=== PATIENT | male | born 1995 | race Caucasian/White ===

== ENCOUNTER 2023-12-04 17:41 | Inpatient (IN) | payer SELFPAY, BC ==
[~2023-12-04 17:41] MED LIST: Iopamidol-370 76% 500 ML MDV (1 ML CHARGE) ONE
[2023-12-04] MEDS ORDERED: Fentanyl BOLUS 250 ML IVPB PRN ×2 (18:00→22:15)
[2023-12-04] MEDS ORDERED: Fentanyl CADD 100 ML IV SCH (18:00)
[2023-12-04 18:11] LABS: #Basophils 0.09 10x3/uL (0.0-0.2); #Eosinphils Less than 0.03 10x3/uL (0.0-0.7); %Basophils 0.4 % (0.0-1.0); %Eosinophils 0.1 % (0.0-10.0); %Lymphocytes 15.1 % (21.0-51.0); %Monocytes 4.4 % (0.0-10.0); %Neutrophils 76.7 % (42.0-75.0); Hematocrit 42.8 % (42.0-52.0); Hemoglobin 14.4 g/dL (14.0-18.0); Mean Corpuscular HGB CONC 33.6 g/dL (32.0-36.0); Mean Corpuscular Hemoglobin 32.1 pg (27.0-31.0); Mean Corpuscular Volume 95.5 fL (78.0-98.0); Platelet Count 454 10x3/uL (130-400); RBC Distribution Width 11.8 % (11.5-14.5); Red Blood Cell (RBC) Count 4.48 mill/uL (4.70-6.10)
[2023-12-04 18:25] LABS: INR-International Normal Ratio 1.4; PTT 32.4 sec (22.9-36.1); Prothrombin Time 17.1 sec (12.0-14.7)
[2023-12-04 18:28] LABS: Globulin 1.7 g/dL (2.4-3.5)
[2023-12-04 18:30] LABS: Anion Gap 21 mmol/L (10-20)
[2023-12-04] MEDS ORDERED: Lidocaine 1% w/Epinephrine 1:100K 20 ML VIAL ONE (18:31)
[2023-12-04 18:32] LABS: ALT (SGPT) 222 U/L (8-55); AST (SGOT) 292 U/L (5-34); Albumin 2.9 g/dL (3.5-5.0); Alkaline Phosphatase 49 U/L (40-110); BUN (Urea Nitrogen) 12 mg/dL (8.9-20.6); Bilirubin, Total 0.7 mg/dL (0.2-1.2); Calc. Creatinine Clearance 0 mL/min (70-130); Calcium 7.8 mg/dL (7.8-10.44); Carbon Dioxide 13 mmol/L (22-29); Chloride 106 mmol/L (98-107); Estimated GFR 58; Glucose 145 mg/dL (70-105); Potassium 3.4 mmol/L (3.5-5.1); Protein, Total 4.6 g/dL (6.0-8.3); Sodium 137 mmol/L (136-145)
[2023-12-04 18:49] LABS: Actual Bicarbonate (HCO3a) 18.6 mEq/L (22-28); CO2 Tension 37.6 mmHg (35.0-45.0); Calcium, Ionized (arterial) 1.05 mmol/L (1.12-1.30); Carboxyhemoglobin (COHb) 0.6 gm% (0.0-3.0); Hematocrit-ABG 37 % (42.0-52.0); Hemoglobin (Hb) 12.6 g/dL (14.0-18.0); O2 Tension (PaO2), arterial 113.6 mmHg (80.0-100.0); pH, Arterial 7.312 (7.35-7.45)
[2023-12-04] MEDS ORDERED: Calcium Chloride 1 GM/10 ML Abboject SYRINGE ONE (18:58)
[2023-12-04] MEDS ORDERED: Dextrose 50% Abboject 50 ML SYRINGE SLOW IVP PRN (19:23)
[2023-12-04] MEDS ORDERED: Ipratropium/Albuterol 3 ML NEB NEB PRN (19:23)
[2023-12-04] MEDS ORDERED: Glucagon 1 MG/ML KIT IM PRN (19:23)
[2023-12-04] MEDS ORDERED: Ondansetron ODT 4 MG TAB PO PRN (19:23)
[2023-12-04] MEDS ORDERED: Ondansetron PF 4 MG/2 ML Vial IVP PRN (19:23)
[2023-12-04] MEDS ORDERED: Dextrose 5% in Water 1,000 ML IV PRN (19:23)
[2023-12-04] MEDS ORDERED: hydrALAZINE 20 MG/ML VIAL SLOW IVP PRN (19:23)
[2023-12-04] MEDS ORDERED: Electrolyte Replacement Protocol 1 EACH FS SCH (19:30)
[2023-12-04] MEDS ORDERED: Rib Fracture Protocol IV SCH (19:30)
[2023-12-04 19:37] LABS: Acetaminophen Less than 10 mcg/mL (10.0-30.0); Alcohol Less than 10.0 mg/dL (Less than 10); Salicylate Less than 8.0 mg/dL (15.0-30.0)
[2023-12-04 21:08] LABS: Lactic Acid 2.1 mmol/L (0.5-2.2)
[2023-12-04] MEDS ORDERED: LORazepam 2 MG/ML SYR.(CARPUJECT) ONE (21:20)
[2023-12-04 21:23] LABS: Amphetamine Not Detected (NotDetected); Barbiturates Screen Not Detected (NotDetected); Benzodiazepine Screen Not Detected (NotDetected); Cocaine Metabolite Screen Not Detected (NotDetected); Methadone Not Detected (NotDetected); Methamphetamine Not Detected (NotDetected); Opiate Screen Not Detected (NotDetected); Oxycodone Screen Not Detected (NotDetected); Phencyclidine (PCP) Not Detected (NotDetected); THC/Cannabinoid Screen Detected (NotDetected); Tricyclic Screen Not Detected (NotDetected)
[2023-12-04 21:24] LABS: Bacteria/HPF None Seen HPF (None Seen); Bilirubin Negative (Negative); Blood, Urine 3+ (Negative); Clarity Clear (Clear); Glucose, Urine (Dipstick) Normal (Negative); Ketone, Urine Negative (Negative); Leukocyte 25 Leu/uL (Negative); Nitrite Negative (Negative); Protein, Urine (Dipstick) 50 mg/dL (Neg-Trace); RBC/HPF Greater than 50 HPF (0-3); Squamous Epithelial None Seen HPF (0-3); Urobilinogen Normal mg/dL (Less than 2)
[2023-12-04] MEDS ORDERED: Propofol BOLUS 1,000 MG/100 ML VIAL IV PRN (22:15)
[2023-12-04] MEDS ORDERED: DISCONTINUE PREVIOUS NARCOTIC PAIN MEDICATIONS AND BENZODIAZEPINES FS SCH (22:15)
[2023-12-04] MEDS: Propofol 1,000 MG/100 ML VIAL IV PRN (22:32)
[2023-12-04] MEDS: Sodium Chloride 0.9% 1,000 ML IV SCH (22:32)
[2023-12-04 23:40] LABS: Globulin 1.3 g/dL (2.4-3.5)
[2023-12-04 23:43] LABS: #Basophils 0.04 10x3/uL (0.0-0.2); #Eosinphils Less than 0.03 10x3/uL (0.0-0.7); %Basophils 0.1 % (0.0-1.0); %Lymphocytes 4.7 % (21.0-51.0); %Monocytes 7.1 % (0.0-10.0); %Neutrophils 86.7 % (42.0-75.0); Hematocrit 29.6 % (42.0-52.0); Hemoglobin 10.4 g/dL (14.0-18.0); Mean Corpuscular HGB CONC 35.1 g/dL (32.0-36.0); Mean Corpuscular Hemoglobin 32.5 pg (27.0-31.0); Mean Corpuscular Volume 92.5 fL (78.0-98.0); Mean Platelet Volume 9.9 fL (7.4-10.4); Platelet Count 202 10x3/uL (130-400)
[2023-12-05 00:04] LABS: ALT (SGPT) 128 U/L (8-55); AST (SGOT) 200 U/L (5-34); Albumin 2.4 g/dL (3.5-5.0); Alkaline Phosphatase 37 U/L (40-110); Anion Gap 10 mmol/L (10-20); BUN (Urea Nitrogen) 15 mg/dL (8.9-20.6); Bilirubin, Total 1.5 mg/dL (0.2-1.2); Calc. Creatinine Clearance 0 mL/min (70-130); Calcium 7.7 mg/dL (7.8-10.44); Carbon Dioxide 22 mmol/L (22-29); Chloride 107 mmol/L (98-107); Estimated GFR 76; Glucose 121 mg/dL (70-105); Potassium 3.7 mmol/L (3.5-5.1); Protein, Total 3.7 g/dL (6.0-8.3); Sodium 135 mmol/L (136-145)
[2023-12-05] MEDS: Ipratropium/Albuterol 3 ML NEB NEB SCH (00:09)
[2023-12-05] MEDS: Potassium Chloride 20 MEQ in Premix 1 BAG IVPB SCH (00:13)
[2023-12-05] MEDS: Acetaminophen 650 MG Suppository PR SCH (00:14)
[2023-12-05] MEDS: Ketorolac Tromethamine 30 MG (1 mL) VIAL IVP SCH (00:14)
[2023-12-05] MEDS: Albumin 25% 25 GM (100 mL) BOT IVPB SCH (01:14)
[2023-12-05] MEDS: Calcium Chloride 13.6 MEQ in Sodium Chloride 0.9% 100 ML IVPB SCH (01:14)
[2023-12-05] MEDS: Lorazepam 2 MG/ML VIAL SLOW IVP PRN (02:25)
[2023-12-05] MEDS: NOREPINEPHRINE 8 MG/250 ML-D5W 250 ML IVPB SCH (02:30)
[2023-12-05 02:34] LABS: Base Excess (BEa) -9.5 mEq/L (-2.0 to +3.0); CO2 Tension 46.4 mmHg (35.0-45.0); Calcium, Ionized (arterial) 1.33 mmol/L (1.12-1.30); Carboxyhemoglobin (COHb) 0.6 gm% (0.0-3.0); Hematocrit-ABG 31 % (42.0-52.0); Hemoglobin (Hb) 10.4 g/dL (14.0-18.0); Potassium - ABG Lab 4.25 mmol/L (3.70-5.30)
[2023-12-05 02:43] LABS: pH, Arterial 7.207 (7.35-7.45)
[2023-12-05 02:44] LABS: O2 Tension (PaO2), arterial 56.1 mmHg (80.0-100.0); Puncture Site LBA
[2023-12-05] MEDS: Sodium Bicarb 50 mEq/50 ML VIAL ONE (02:51)
[2023-12-05] MEDS: Sodium Chloride 0.9% 500 ML IV SCH ×2 (02:57→23:22)
[2023-12-05] MEDS: Vecuronium 10 MG VIAL IVP PRN (03:03)
[2023-12-05] MEDS: Fentanyl CADD 100 ML IV SCH (03:54)
[2023-12-05] MEDS: Vecuronium 10 MG VIAL ONE (03:56)
[2023-12-05 04:32] LABS: #Basophils 0.03 10x3/uL (0.0-0.2); #Eosinphils Less than 0.03 10x3/uL (0.0-0.7); %Basophils 0.2 % (0.0-1.0); %Eosinophils 0.1 % (0.0-10.0); %Lymphocytes 10.5 % (21.0-51.0); %Monocytes 8.7 % (0.0-10.0); %Neutrophils 79.2 % (42.0-75.0); Hematocrit 23.5 % (42.0-52.0); Hemoglobin 8.6 g/dL (14.0-18.0); Mean Corpuscular HGB CONC 36.6 g/dL (32.0-36.0); Mean Corpuscular Hemoglobin 32.1 pg (27.0-31.0); Mean Corpuscular Volume 87.7 fL (78.0-98.0); Mean Platelet Volume 10.3 fL (7.4-10.4); Platelet Count 158 10x3/uL (130-400); RBC Distribution Width 13.4 % (11.5-14.5); Red Blood Cell (RBC) Count 2.68 mill/uL (4.70-6.10)
[2023-12-05 04:51] LABS: Phosphorus 4.9 mg/dL (2.3-4.7)
[2023-12-05 04:58] LABS: ALT (SGPT) 92 U/L (8-55); AST (SGOT) 142 U/L (5-34); Albumin 2.5 g/dL (3.5-5.0); Alkaline Phosphatase 29 U/L (40-110); Anion Gap 12 mmol/L (10-20); BUN (Urea Nitrogen) 18 mg/dL (8.9-20.6); Bilirubin, Total 1.2 mg/dL (0.2-1.2); Calc. Creatinine Clearance 96 mL/min (70-130); Carbon Dioxide 23 mmol/L (22-29); Chloride 108 mmol/L (98-107); Estimated GFR 79; Glucose 122 mg/dL (70-105); Magnesium 1.5 mg/dL (1.6-2.6); Potassium 4.1 mmol/L (3.5-5.1); Protein, Total 3.5 g/dL (6.0-8.3); Sodium 139 mmol/L (136-145)
[2023-12-05 05:25] LABS: INR-International Normal Ratio 1.7; PTT 37.3 sec (22.9-36.1); Prothrombin Time 19.5 sec (12.0-14.7)
[2023-12-05] MEDS: Magnesium 2 GM/50 ML(in water) 2 GM in Premix 1 BAG IVPB SCH (05:26)
[2023-12-05] MEDS: TETANUS, DIPHTHERIA TOX,ADULT (TDVAX) 0.5 ML VIAL IM ONE (06:33)
[2023-12-05] MEDS: Famotidine/PF 20 mg/2ml Vial SLOW IVP SCH (06:35)
[2023-12-05] MEDS: Sodium Chloride 0.9% 1,000 ML IV SCH (06:44)
[2023-12-05 07:25] LABS: Actual Bicarbonate (HCO3a) 22.4 mEq/L (22-28); Base Excess (BEa) -1.3 mEq/L (-2.0 to +3.0); CO2 Tension 33.3 mmHg (35.0-45.0); Calcium, Ionized (arterial) 1.15 mmol/L (1.12-1.30); Carboxyhemoglobin (COHb) 0.7 gm% (0.0-3.0); Hematocrit-ABG 25 % (42.0-52.0); Hemoglobin (Hb) 8.5 g/dL (14.0-18.0); O2 Tension (PaO2), arterial 109.1 mmHg (80.0-100.0); Potassium - ABG Lab 3.87 mmol/L (3.70-5.30); pH, Arterial 7.446 (7.35-7.45)
[2023-12-05 07:30] LABS: ALV-art Gradient 241.425 mmHg (0-20); Puncture Site RRA
[2023-12-05] MEDS ORDERED: CEFAZOLIN 2 GM in Sodium Chloride 0.9% 100 ML IVPB SCH ×2 (07:30→22:00)
[2023-12-05] MEDS ORDERED: Dextrose 5% in Water 1,000 ML IV SCH (08:15)
[2023-12-05] MEDS: cefTRIAXone\\ROCEPHIN 2 GM in Sodium Chloride 0.9% 100 ML IVPB SCH (08:35)
[2023-12-05] MEDS ORDERED: Iopamidol-370 76% 500 ML MDV (1 ML CHARGE) ONE (10:04)
[2023-12-05 12:26] LABS: Hematocrit 27.5 % (42.0-52.0); Hemoglobin 9.8 g/dL (14.0-18.0); Platelet Count 150 10x3/uL (130-400)
[2023-12-05 12:46] LABS: INR-International Normal Ratio 1.4; PTT 36.6 sec (22.9-36.1); Prothrombin Time 17.6 sec (12.0-14.7)
[2023-12-05] MEDS ORDERED: fentaNYL PF 100 MCG/2 ML SYRINGE ONE (15:16)
[2023-12-05] MEDS ORDERED: Dexamethasone 20 MG/5 ML VIAL ONE (15:17)
[2023-12-05] MEDS ORDERED: Rocuronium Bromide 10 MG/ML (10ML VIAL) ONE (15:17)
[2023-12-05] MEDS ORDERED: Ondansetron PF 4 MG/2 ML Vial ONE (15:17)
[2023-12-05] MEDS ORDERED: Ketamine In 0.9 % NaCl 50 MG/5 ML SYRINGE ONE (15:43)
[2023-12-05] MEDS ORDERED: fentaNYL 50 mcg/mL 1 mL Vial ONE (16:10)
[2023-12-05 23:27] LABS: #Basophils Less than 0.03 10x3/uL (0.0-0.2); #Eosinphils Less than 0.03 10x3/uL (0.0-0.7); %Basophils 0.1 % (0.0-1.0); %Lymphocytes 6.7 % (21.0-51.0); %Monocytes 7.6 % (0.0-10.0); %Neutrophils 85.2 % (42.0-75.0); Hemoglobin 7.4 g/dL (14.0-18.0); Mean Corpuscular HGB CONC 35.2 g/dL (32.0-36.0); Mean Corpuscular Hemoglobin 31.4 pg (27.0-31.0); Platelet Count 132 10x3/uL (130-400); RBC Distribution Width 13.9 % (11.5-14.5); Red Blood Cell (RBC) Count 2.36 mill/uL (4.70-6.10)
[2023-12-06] MEDS: Acetaminophen 325 MG TAB PO SCH (00:56)
[2023-12-06 06:07] LABS: #Basophils Less than 0.03 10x3/uL (0.0-0.2); #Eosinphils Less than 0.03 10x3/uL (0.0-0.7); %Basophils 0.1 % (0.0-1.0); %Eosinophils 0.1 % (0.0-10.0); %Lymphocytes 7.1 % (21.0-51.0); %Monocytes 5.5 % (0.0-10.0); %Neutrophils 86.8 % (42.0-75.0); Hematocrit 26.3 % (42.0-52.0); Hemoglobin 9.4 g/dL (14.0-18.0); Mean Corpuscular HGB CONC 35.7 g/dL (32.0-36.0); Mean Corpuscular Hemoglobin 31.9 pg (27.0-31.0); Mean Corpuscular Volume 89.2 fL (78.0-98.0); Mean Platelet Volume 11.7 fL (7.4-10.4); Platelet Count 184 10x3/uL (130-400); RBC Distribution Width 14.1 % (11.5-14.5); Red Blood Cell (RBC) Count 2.95 mill/uL (4.70-6.10)
[2023-12-06 06:18] LABS: Globulin 2.3 g/dL (2.4-3.5)
[2023-12-06 06:30] LABS: ALT (SGPT) 82 U/L (8-55); AST (SGOT) 128 U/L (5-34); Albumin 2.2 g/dL (3.5-5.0); Alkaline Phosphatase 38 U/L (40-110); Anion Gap 11 mmol/L (10-20); BUN (Urea Nitrogen) 20 mg/dL (8.9-20.6); Bilirubin, Total 0.5 mg/dL (0.2-1.2); Calc. Creatinine Clearance 146 mL/min (70-130); Calcium 7.7 mg/dL (7.8-10.44); Carbon Dioxide 20 mmol/L (22-29); Chloride 113 mmol/L (98-107); Estimated GFR 122; Glucose 109 mg/dL (70-105); Potassium 5.3 mmol/L (3.5-5.1); Protein, Total 4.5 g/dL (6.0-8.3); Sodium 139 mmol/L (136-145)
[2023-12-06 07:28] LABS: Base Excess (BEa) -3.1 mEq/L (-2.0 to +3.0); CO2 Tension 39.7 mmHg (35.0-45.0); Calcium, Ionized (arterial) 1.15 mmol/L (1.12-1.30); Carboxyhemoglobin (COHb) 0.2 gm% (0.0-3.0); Hematocrit-ABG 29 % (42.0-52.0); Hemoglobin (Hb) 9.8 g/dL (14.0-18.0); Potassium - ABG Lab 4.14 mmol/L (3.70-5.30); pH, Arterial 7.362 (7.35-7.45)
[2023-12-06 07:33] LABS: O2 Tension (PaO2), arterial 57.8 mmHg (80.0-100.0)
[2023-12-06 07:34] LABS: ALV-art Gradient 462.975 mmHg (0-20); Puncture Site RRA
[2023-12-06] MEDS: Albumin 25% 25 GM (100 mL) BOT IVPB SCH ×2 (09:27→18:41)
[2023-12-06] MEDS: Sodium Chloride 0.45% 1,000 ML IV SCH ×2 (09:27→15:43)
[2023-12-06] MEDS: Lidocaine 1% w/Epinephrine 1:100K 20 ML VIAL FS SCH (09:47)
[2023-12-06] MEDS: Lidocaine 1% w/Epinephrine 1:100K 20 ML VIAL ONE (09:47)
[2023-12-07 03:55] LABS: #Basophils 0.08 10x3/uL (0.0-0.2); %Basophils 0.6 % (0.0-1.0); %Eosinophils 1.3 % (0.0-10.0); %Lymphocytes 16.6 % (21.0-51.0); %Monocytes 6.4 % (0.0-10.0); %Neutrophils 74.1 % (42.0-75.0); Hematocrit 22.9 % (42.0-52.0); Hemoglobin 7.4 g/dL (14.0-18.0); Mean Corpuscular HGB CONC 32.3 g/dL (32.0-36.0); Mean Corpuscular Hemoglobin 30.3 pg (27.0-31.0); Mean Corpuscular Volume 93.9 fL (78.0-98.0); Mean Platelet Volume 10.7 fL (7.4-10.4); Platelet Count 122 10x3/uL (130-400); RBC Distribution Width 14.1 % (11.5-14.5); Red Blood Cell (RBC) Count 2.44 mill/uL (4.70-6.10)
[2023-12-07 04:26] LABS: Globulin 1.9 g/dL (2.4-3.5)
[2023-12-07 04:31] LABS: ALT (SGPT) 66 U/L (8-55); AST (SGOT) 87 U/L (5-34); Albumin 2.5 g/dL (3.5-5.0); Alkaline Phosphatase 48 U/L (40-110); Anion Gap 14 mmol/L (10-20); BUN (Urea Nitrogen) 19 mg/dL (8.9-20.6); Bilirubin, Total 0.6 mg/dL (0.2-1.2); Calc. Creatinine Clearance 141 mL/min (70-130); Calcium 7.8 mg/dL (7.8-10.44); Carbon Dioxide 17 mmol/L (22-29); Chloride 109 mmol/L (98-107); Estimated GFR 121; Glucose 88 mg/dL (70-105); Protein, Total 4.4 g/dL (6.0-8.3); Sodium 136 mmol/L (136-145)
[2023-12-07 17:54] LABS: Hemoglobin 8.1 g/dL (14.0-18.0)
[2023-12-07] MEDS: Vecuronium Bromide 50 MG, Admixture Fee 1 EACH in Sodium Chloride 0.9% 250 ML 250 ML IV SCH (20:00)
[2023-12-07] MEDS: Sodium Bicarb 50 mEq/50 ML VIAL IVP SCH (21:27)
[2023-12-07] MEDS: Metoclopramide HCl 10 MG (2 mL) VIAL IVP SCH (23:54)
[2023-12-08 04:22] LABS: #Basophils 0.05 10x3/uL (0.0-0.2); %Basophils 0.3 % (0.0-1.0); %Lymphocytes 7.4 % (21.0-51.0); %Monocytes 6.8 % (0.0-10.0); %Neutrophils 82.3 % (42.0-75.0); Hemoglobin 7.5 g/dL (14.0-18.0); Mean Corpuscular HGB CONC 34.1 g/dL (32.0-36.0); Mean Corpuscular Hemoglobin 30.7 pg (27.0-31.0); Mean Corpuscular Volume 90.2 fL (78.0-98.0); Mean Platelet Volume 10.5 fL (7.4-10.4); Platelet Count 171 10x3/uL (130-400); RBC Distribution Width 13.8 % (11.5-14.5); Red Blood Cell (RBC) Count 2.44 mill/uL (4.70-6.10)
[2023-12-08 05:07] LABS: Globulin 2.4 g/dL (2.4-3.5)
[2023-12-08 05:11] LABS: ALT (SGPT) 66 U/L (8-55); AST (SGOT) 78 U/L (5-34); Albumin 2.1 g/dL (3.5-5.0); Alkaline Phosphatase 70 U/L (40-110); Anion Gap 12 mmol/L (10-20); BUN (Urea Nitrogen) 14 mg/dL (8.9-20.6); Bilirubin, Total 0.8 mg/dL (0.2-1.2); Calc. Creatinine Clearance 183 mL/min (70-130); Carbon Dioxide 19 mmol/L (22-29); Chloride 108 mmol/L (98-107); Estimated GFR 129; Glucose 93 mg/dL (70-105); Protein, Total 4.5 g/dL (6.0-8.3); Sodium 135 mmol/L (136-145)
[2023-12-08 11:39] LABS: Hematocrit 23.5 % (42.0-52.0); Hemoglobin 7.8 g/dL (14.0-18.0)
[2023-12-08 23:01] LABS: Anion Gap 14 mmol/L (10-20); BUN (Urea Nitrogen) 14 mg/dL (8.9-20.6); Calc. Creatinine Clearance 193 mL/min (70-130); Calcium 8.5 mg/dL (7.8-10.44); Carbon Dioxide 21 mmol/L (22-29); Chloride 106 mmol/L (98-107); Estimated GFR 129; Glucose 99 mg/dL (70-105); Potassium 3.9 mmol/L (3.5-5.1); Sodium 137 mmol/L (136-145)
[2023-12-09 04:56] LABS: #Basophils 0.06 10x3/uL (0.0-0.2); %Basophils 0.4 % (0.0-1.0); %Eosinophils 1.9 % (0.0-10.0); %Lymphocytes 5.4 % (21.0-51.0); %Monocytes 8.2 % (0.0-10.0); %Neutrophils 79.5 % (42.0-75.0); Hematocrit 21.1 % (42.0-52.0); Mean Corpuscular HGB CONC 33.2 g/dL (32.0-36.0); Mean Corpuscular Hemoglobin 30.8 pg (27.0-31.0); Mean Platelet Volume 9.7 fL (7.4-10.4); Platelet Count 228 10x3/uL (130-400); RBC Distribution Width 13.6 % (11.5-14.5); Red Blood Cell (RBC) Count 2.27 mill/uL (4.70-6.10)
[2023-12-09 05:15] LABS: Globulin 2.6 g/dL (2.4-3.5)
[2023-12-09 05:19] LABS: ALT (SGPT) 66 U/L (8-55); AST (SGOT) 75 U/L (5-34); Albumin 1.9 g/dL (3.5-5.0); Alkaline Phosphatase 94 U/L (40-110); Anion Gap 12 mmol/L (10-20); BUN (Urea Nitrogen) 15 mg/dL (8.9-20.6); Calc. Creatinine Clearance 218 mL/min (70-130); Carbon Dioxide 22 mmol/L (22-29); Chloride 107 mmol/L (98-107); Estimated GFR 134; Glucose 94 mg/dL (70-105); Potassium 3.8 mmol/L (3.5-5.1); Protein, Total 4.5 g/dL (6.0-8.3); Sodium 137 mmol/L (136-145)
[2023-12-09] MEDS: Sodium Chloride 0.45% 1,000 ML IV SCH (10:49)
[2023-12-09 11:53] LABS: Hematocrit 23.2 % (42.0-52.0); Hemoglobin 7.8 g/dL (14.0-18.0)
[2023-12-09] MEDS: Dexmedetomidine 1,000 MCG in NS 250 mL IVPB SCH (13:31)
[2023-12-09] MEDS: hydrOXYzine Pamoate 25 mg Capsule PO SCH (20:55)
[2023-12-09] MEDS: QUEtiapine 100 MG TAB PO SCH (20:55)
[2023-12-10] MEDS: Vecuronium 10 MG VIAL IVP SCH (03:22)
[2023-12-10] MEDS: Vecuronium 10 MG VIAL ONE (03:25)
[2023-12-10] MEDS: Sterile Water 10 ML ONE (03:25)
[2023-12-10 05:10] LABS: Globulin 2.9 g/dL (2.4-3.5); Hematocrit 23.6 % (42.0-52.0); Hemoglobin 7.9 g/dL (14.0-18.0); Mean Corpuscular HGB CONC 33.5 g/dL (32.0-36.0); Mean Corpuscular Hemoglobin 29.8 pg (27.0-31.0); Mean Corpuscular Volume 89.1 fL (78.0-98.0); Mean Platelet Volume 9.9 fL (7.4-10.4); Platelet Count 303 10x3/uL (130-400); RBC Distribution Width 14.2 % (11.5-14.5); Red Blood Cell (RBC) Count 2.65 mill/uL (4.70-6.10)
[2023-12-10 05:14] LABS: ALT (SGPT) 57 U/L (8-55); AST (SGOT) 49 U/L (5-34); Albumin 1.9 g/dL (3.5-5.0); Alkaline Phosphatase 90 U/L (40-110); Anion Gap 13 mmol/L (10-20); BUN (Urea Nitrogen) 16 mg/dL (8.9-20.6); Bilirubin, Total 0.8 mg/dL (0.2-1.2); Calc. Creatinine Clearance 192 mL/min (70-130); Calcium 8.3 mg/dL (7.8-10.44); Carbon Dioxide 23 mmol/L (22-29); Chloride 107 mmol/L (98-107); Estimated GFR 128; Glucose 95 mg/dL (70-105); Potassium 3.7 mmol/L (3.5-5.1); Protein, Total 4.8 g/dL (6.0-8.3); Sodium 139 mmol/L (136-145)
[2023-12-10 06:40] LABS: Band 1 % (5-11); Eosinophils 4 % (0-10); Large Platelets 4.3 % (0-5); Lymphocytes 2 % (21-51); Monocytes 7 % (0-10); Myelocyte 4 % (0-0); Neutrophil 83 % (42-75); Platelet Adequacy Comment Platelets Normal; RBC Morphology Within Normal Limits
[2023-12-10 07:50] LABS: Actual Bicarbonate (HCO3a) 25.1 mEq/L (22-28); Base Excess (BEa) 1.2 mEq/L (-2.0 to +3.0); Calcium, Ionized (arterial) 1.16 mmol/L (1.12-1.30); Hematocrit-ABG 26 % (42.0-52.0); Hemoglobin (Hb) 8.9 g/dL (14.0-18.0); O2 Tension (PaO2), arterial 67.7 mmHg (80.0-100.0); Potassium - ABG Lab 3.66 mmol/L (3.70-5.30)
[2023-12-10 07:52] LABS: Puncture Site RBA
[2023-12-10] MEDS: Vecuronium 10 MG VIAL IV PRN (11:15)
[2023-12-11] MEDS: Sterile Water 10 ML VIAL FS PRN (00:21)
[2023-12-11 07:48] LABS: Actual Bicarbonate (HCO3a) 27.7 mEq/L (22-28); Base Excess (BEa) 2.6 mEq/L (-2.0 to +3.0); CO2 Tension 45.8 mmHg (35.0-45.0); Calcium, Ionized (arterial) 1.16 mmol/L (1.12-1.30); Carboxyhemoglobin (COHb) 0.8 gm% (0.0-3.0); Hematocrit-ABG 27 % (42.0-52.0); Hemoglobin (Hb) 9.2 g/dL (14.0-18.0); O2 Tension (PaO2), arterial 111.7 mmHg (80.0-100.0); Potassium - ABG Lab 3.82 mmol/L (3.70-5.30)
[2023-12-11 07:49] LABS: Puncture Site RRA
[2023-12-11 08:45] LABS: ALT (SGPT) 50 U/L (8-55); AST (SGOT) 47 U/L (5-34); Albumin 1.8 g/dL (3.5-5.0); Alkaline Phosphatase 91 U/L (40-110); Anion Gap 13 mmol/L (10-20); BUN (Urea Nitrogen) 14 mg/dL (8.9-20.6); Bilirubin, Total 0.8 mg/dL (0.2-1.2); Calc. Creatinine Clearance 212 mL/min (70-130); Calcium 8.3 mg/dL (7.8-10.44); Carbon Dioxide 25 mmol/L (22-29); Chloride 106 mmol/L (98-107); Estimated GFR 133; Glucose 91 mg/dL (70-105); Potassium 3.9 mmol/L (3.5-5.1); Protein, Total 4.8 g/dL (6.0-8.3); Sodium 140 mmol/L (136-145)
[2023-12-11 09:40] LABS: Hematocrit 25.4 % (42.0-52.0); Hemoglobin 8.2 g/dL (14.0-18.0); Mean Corpuscular HGB CONC 32.3 g/dL (32.0-36.0); Mean Corpuscular Hemoglobin 30.7 pg (27.0-31.0); Mean Corpuscular Volume 95.1 fL (78.0-98.0); Mean Platelet Volume 10.9 fL (7.4-10.4); Platelet Count 322 10x3/uL (130-400); RBC Distribution Width 13.9 % (11.5-14.5); Red Blood Cell (RBC) Count 2.67 mill/uL (4.70-6.10)
[2023-12-11 10:10] LABS: Band 2 % (5-11); Large Platelets 2.9 % (0-5); Lymphocytes 9 % (21-51); Monocytes 8 % (0-10); Neutrophil 81 % (42-75); Platelet Adequacy Comment Platelets Normal; RBC Morphology Within Normal Limits
[2023-12-11] MEDS ORDERED: Lorazepam 20 MG/10ML 100 MG in Sodium Chloride 0.9% 50 ML IVPB SCH (11:30)
[2023-12-11] MEDS: Sodium Chloride 0.45% 1,000 ML IV SCH (12:07)
[2023-12-11] MEDS ORDERED: Midazolam In 0.9 % NaCl/PF 100 ML IVPB SCH (12:30)
[2023-12-11] MEDS: Famotidine 20 MG TAB PER TUBE SCH (21:15)
[2023-12-12 04:58] LABS: Hematocrit 25.7 % (42.0-52.0); Hemoglobin 8.4 g/dL (14.0-18.0); Mean Corpuscular HGB CONC 32.7 g/dL (32.0-36.0); Mean Corpuscular Hemoglobin 30.5 pg (27.0-31.0); Mean Corpuscular Volume 93.5 fL (78.0-98.0); Mean Platelet Volume 11.3 fL (7.4-10.4); Platelet Count 346 10x3/uL (130-400); RBC Distribution Width 13.9 % (11.5-14.5); Red Blood Cell (RBC) Count 2.75 mill/uL (4.70-6.10)
[2023-12-12 06:00] LABS: Band 3 % (5-11); Eosinophils 4 % (0-10); Lymphocytes 4 % (21-51); Metamyelocyte 2 % (0-0); Monocytes 6 % (0-10); Myelocyte 4 % (0-0); Neutrophil 77 % (42-75); Platelet Adequacy Comment Platelets Normal; Polychromasia SLIGHT = 2-3 cells HPF (0-2); RBC Morphology Within Normal Limits; Smudge Cells 13.9 %
[2023-12-12] MEDS ORDERED: Lorazepam 20 MG/10ML 100 MG in Sodium Chloride 0.9% 50 ML IVPB SCH (06:00)
[2023-12-12 07:47] LABS: Calcium, Ionized (arterial) 1.15 mmol/L (1.12-1.30); Carboxyhemoglobin (COHb) 1.6 gm% (0.0-3.0); Hematocrit-ABG 38 % (42.0-52.0); Hemoglobin (Hb) 12.8 g/dL (14.0-18.0); O2 Tension (PaO2), arterial 86.3 mmHg (80.0-100.0)
[2023-12-12 07:48] LABS: Puncture Site RRA
[2023-12-12] MEDS: Morphine 2 MG/ML VIAL SLOW IVP PRN (14:21)
[2023-12-12] MEDS ORDERED: Morphine 4 MG/ML VIAL SLOW IVP SCH (15:45)
[2023-12-12] MEDS: Morphine 4 MG/ML VIAL SLOW IVP SCH (15:50)
[2023-12-13 05:05] LABS: Hematocrit 27.6 % (42.0-52.0); Hemoglobin 8.8 g/dL (14.0-18.0); Mean Corpuscular HGB CONC 31.9 g/dL (32.0-36.0); Mean Corpuscular Hemoglobin 29.7 pg (27.0-31.0); Mean Corpuscular Volume 93.2 fL (78.0-98.0); Mean Platelet Volume 12.3 fL (7.4-10.4); Platelet Count 261 10x3/uL (130-400); RBC Distribution Width 13.8 % (11.5-14.5); Red Blood Cell (RBC) Count 2.96 mill/uL (4.70-6.10)
[2023-12-13 06:11] LABS: Band 5 % (5-11); Eosinophils 1 % (0-10); Large Platelets 1.9 % (0-5); Lymphocytes 4 % (21-51); Metamyelocyte 2 % (0-0); Monocytes 5 % (0-10); Myelocyte 4 % (0-0); Neutrophil 80 % (42-75); Nucleated RBC (Manual Ct) 1 % (0); Platelet Adequacy Comment Platelets Normal; Polychromasia SLIGHT = 2-3 cells HPF (0-2); Smudge Cells 13.6 %
[2023-12-13 07:48] LABS: Actual Bicarbonate (HCO3a) 25.9 mEq/L (22-28); Base Excess (BEa) 0.8 mEq/L (-2.0 to +3.0); CO2 Tension 43.1 mmHg (35.0-45.0); Calcium, Ionized (arterial) 1.19 mmol/L (1.12-1.30); Carboxyhemoglobin (COHb) 1.8 gm% (0.0-3.0); Hematocrit-ABG 31 % (42.0-52.0); Hemoglobin (Hb) 10.5 g/dL (14.0-18.0); O2 Tension (PaO2), arterial 79.6 mmHg (80.0-100.0); pH, Arterial 7.396 (7.35-7.45)
[2023-12-13 07:49] LABS: ALV-art Gradient 151.725 mmHg (0-20); Puncture Site RRA
[2023-12-13] MEDS: Lorazepam 20 MG/10ML 100 MG in Sodium Chloride 0.9% 50 ML IVPB SCH (11:22)
[2023-12-13] MEDS: Meropenem 1 GM in Sodium Chloride 0.9% 100 ML IVPB SCH ×2 (11:37→18:07)
[2023-12-13] MEDS ORDERED: Meropenem 1 GM in Sodium Chloride 0.9% 100 ML IVPB SCH (14:00)
[2023-12-13] MEDS: Enoxaparin 40 MG (0.4 mL) SYRINGE SC SCH (21:07)
[2023-12-14 05:07] LABS: Hematocrit 26.4 % (42.0-52.0); Hemoglobin 8.5 g/dL (14.0-18.0); Mean Corpuscular HGB CONC 32.2 g/dL (32.0-36.0); Mean Corpuscular Hemoglobin 29.7 pg (27.0-31.0); Mean Corpuscular Volume 92.3 fL (78.0-98.0); Platelet Count 349 10x3/uL (130-400); RBC Distribution Width 13.3 % (11.5-14.5); Red Blood Cell (RBC) Count 2.86 mill/uL (4.70-6.10)
[2023-12-14 06:00] LABS: Band 6 % (5-11); Eosinophils 1 % (0-10); Hypochromia SLIGHT = 6-15 cells HPF (0-5); Lymphocytes 8 % (21-51); Monocytes 5 % (0-10); Myelocyte 3 % (0-0); Neutrophil 77 % (42-75); Platelet Adequacy Comment Platelets Normal; Polychromasia SLIGHT = 2-3 cells HPF (0-2)
[2023-12-14] MEDS ORDERED: PROPOFOL 20 ML ONE (06:27)
[2023-12-14] MEDS ORDERED: Rocuronium Bromide 10 MG/ML (10ML VIAL) ONE (06:28)
[2023-12-14] MEDS ORDERED: Lidocaine 1% PF 5 ML VIAL ONE (06:28)
[2023-12-14] MEDS ORDERED: fentaNYL PF 100 MCG/2 ML SYRINGE ONE (06:28)
[2023-12-14] MEDS ORDERED: EPINEPHrine 1 MG/ML VIAL ONE (07:33)
[2023-12-14] MEDS ORDERED: Bupivacaine 0.25% HCL 30 ML VIAL ONE (07:33)
[2023-12-14] MEDS ORDERED: Lidocaine 2% PF 5 ML VIAL ONE (07:34)
[2023-12-14] MEDS: Haloperidol Lactate 5 MG/ML VIAL IM SCH (11:05)
[2023-12-15 06:13] LABS: %Basophils 0.4 % (0.0-1.0); %Eosinophils 1.1 % (0.0-10.0); %Lymphocytes 7.9 % (21.0-51.0); %Monocytes 6.1 % (0.0-10.0); %Neutrophils 79.7 % (42.0-75.0); Hemoglobin 8.5 g/dL (14.0-18.0); Mean Corpuscular HGB CONC 32.7 g/dL (32.0-36.0); Mean Corpuscular Hemoglobin 30.2 pg (27.0-31.0); Mean Corpuscular Volume 92.5 fL (78.0-98.0); Mean Platelet Volume 10.4 fL (7.4-10.4); Platelet Count 285 10x3/uL (130-400); RBC Distribution Width 13.6 % (11.5-14.5); Red Blood Cell (RBC) Count 2.81 mill/uL (4.70-6.10)
[2023-12-16 06:16] LABS: Hematocrit 28.6 % (42.0-52.0); Hemoglobin 9.7 g/dL (14.0-18.0); Mean Corpuscular HGB CONC 33.9 g/dL (32.0-36.0); Mean Corpuscular Hemoglobin 29.8 pg (27.0-31.0); Mean Platelet Volume 10.7 fL (7.4-10.4); Platelet Count 472 10x3/uL (130-400); RBC Distribution Width 13.8 % (11.5-14.5); Red Blood Cell (RBC) Count 3.25 mill/uL (4.70-6.10)
[2023-12-16 06:47] LABS: Band 6 % (5-11); Eosinophils 1 % (0-10); Hypochromia SLIGHT = 6-15 cells HPF (0-5); Lymphocytes 6 % (21-51); Monocytes 9 % (0-10); Neutrophil 77 % (42-75); Platelet Adequacy Comment Platelets Increased; Polychromasia SLIGHT = 2-3 cells HPF (0-2)
[2023-12-16] MEDS: fentaNYL 50 mcg/hour Patch TD SCH (11:39)
[2023-12-16] MEDS: Lorazepam 1 MG TAB PO SCH ×2 (11:39→21:12)
[2023-12-16] MEDS ORDERED: Acetaminophen 325 MG TAB PER TUBE PRN (12:05)
[2023-12-16] MEDS: QUEtiapine 100 MG TAB PO SCH (21:12)
[2023-12-16] MEDS: Lorazepam 2 MG/ML VIAL SLOW IVP SCH (23:11)
[2023-12-16] MEDS: Acetaminophen 500 MG TAB PER TUBE PRN (23:19)
[2023-12-17 04:29] LABS: Hematocrit 29.3 % (42.0-52.0); Hemoglobin 9.3 g/dL (14.0-18.0); Mean Corpuscular HGB CONC 31.7 g/dL (32.0-36.0); Mean Corpuscular Hemoglobin 28.8 pg (27.0-31.0); Mean Corpuscular Volume 90.7 fL (78.0-98.0); Mean Platelet Volume 11.5 fL (7.4-10.4); Platelet Count 235 10x3/uL (130-400); RBC Distribution Width 14.2 % (11.5-14.5); Red Blood Cell (RBC) Count 3.23 mill/uL (4.70-6.10)
[2023-12-17 05:07] LABS: Band 2 % (5-11); Eosinophils 5 % (0-10); Hypochromia SLIGHT = 6-15 cells HPF (0-5); Large Platelets 1.9 % (0-5); Lymphocytes 7 % (21-51); Macrocytosis SLIGHT = 6-15 cells HPF (0-5); Monocytes 10 % (0-10); Neutrophil 77 % (42-75); Ovalocytes SLIGHT = 2-5 cells HPF (0-1); Platelet Adequacy Comment Platelets Normal; Polychromasia SLIGHT = 2-3 cells HPF (0-2); Smudge Cells 5.8 %
[2023-12-17] MEDS: HYDROcodone/Acetaminophen 5/325 mg Tablet PER TUBE PRN (13:48)
[2023-12-18 06:23] LABS: Anion Gap 13 mmol/L (10-20); BUN (Urea Nitrogen) 14 mg/dL (8.9-20.6); Calc. Creatinine Clearance 164 mL/min (70-130); Calcium 8.8 mg/dL (7.8-10.44); Carbon Dioxide 26 mmol/L (22-29); Chloride 102 mmol/L (98-107); Estimated GFR 132; Glucose 112 mg/dL (70-105); Potassium 3.9 mmol/L (3.5-5.1); Sodium 137 mmol/L (136-145)
[2023-12-19] MEDS: QUEtiapine 25 MG TAB PO SCH (11:24)
[2023-12-19] MEDS: fentaNYL 50 mcg/hour Patch TD SCH (11:25)
[2023-12-19] MEDS: Haloperidol Lactate 5 MG/ML VIAL IM SCH ×2 (11:25→20:52)
[2023-12-19 18:56] LABS: Bilirubin Negative (Negative); Blood, Urine Negative (Negative); Glucose, Urine (Dipstick) Negative (Negative); Ketone, Urine Negative (Negative); Leukocyte Negative (Negative); Nitrite Negative (Negative); Protein, Urine (Dipstick) Negative (Neg-Trace); Specific Gravity, Urine 1.025 (1.005-1.030); pH, Urine 6.5 (5.0-9.0)
[2023-12-19 18:57] LABS: Clarity Clear (Clear)
[2023-12-19 19:09] LABS: Bacteria/HPF None Seen HPF (None Seen); RBC/HPF 0-3 HPF (0-3); Squamous Epithelial None Seen HPF (0-3); WBC/HPF 0-3 HPF (0-3)
[2023-12-20] MEDS ORDERED: Polyethylene Glycol 3350 17 GM Packet PO PRN (07:28)
[2023-12-20] MEDS ORDERED: fentaNYL 50 mcg/hour Patch TD SCH (09:00)
[2023-12-20 10:16] LABS: #Basophils 0.11 10x3/uL (0.0-0.2); %Basophils 0.8 % (0.0-1.0); %Eosinophils 4.7 % (0.0-10.0); %Lymphocytes 12.9 % (21.0-51.0); %Monocytes 9.3 % (0.0-10.0); %Neutrophils 70.4 % (42.0-75.0); Hematocrit 32.3 % (42.0-52.0); Hemoglobin 10.3 g/dL (14.0-18.0); Mean Corpuscular HGB CONC 31.9 g/dL (32.0-36.0); Mean Corpuscular Hemoglobin 29.5 pg (27.0-31.0); Mean Corpuscular Volume 92.6 fL (78.0-98.0); Platelet Count 565 10x3/uL (130-400); RBC Distribution Width 14.2 % (11.5-14.5); Red Blood Cell (RBC) Count 3.49 mill/uL (4.70-6.10)
[2023-12-20 10:32] LABS: Anion Gap 11 mmol/L (10-20); BUN (Urea Nitrogen) 15 mg/dL (8.9-20.6); Calc. Creatinine Clearance 162 mL/min (70-130); Calcium 8.6 mg/dL (7.8-10.44); Carbon Dioxide 27 mmol/L (22-29); Chloride 100 mmol/L (98-107); Estimated GFR 132; Glucose 104 mg/dL (70-105); Potassium 4.1 mmol/L (3.5-5.1); Sodium 134 mmol/L (136-145)
[2023-12-20] MEDS: Haloperidol 5 MG TAB PO SCH (10:36)
[2023-12-20] MEDS: fentaNYL 25 mcg Patch TD SCH (10:37)
[2023-12-20] MEDS: QUEtiapine 25 MG TAB PO SCH (20:17)
[2023-12-21] MEDS: QUEtiapine 100 MG TAB PO SCH (20:31)
[2023-12-25 00:44] VITALS: BMI 20.2
[2023-12-25 05:06] LABS: %Basophils 1.1 % (0.0-1.0); %Eosinophils 4.5 % (0.0-10.0); %Lymphocytes 24.7 % (21.0-51.0); %Monocytes 10.1 % (0.0-10.0); %Neutrophils 57.4 % (42.0-75.0); Hematocrit 32.3 % (42.0-52.0); Hemoglobin 10.8 g/dL (14.0-18.0); Mean Corpuscular HGB CONC 33.4 g/dL (32.0-36.0); Mean Corpuscular Hemoglobin 31.1 pg (27.0-31.0); Mean Corpuscular Volume 93.1 fL (78.0-98.0); Mean Platelet Volume 9.3 fL (7.4-10.4); Platelet Count 773 10x3/uL (130-400); RBC Distribution Width 14.4 % (11.5-14.5); Red Blood Cell (RBC) Count 3.47 mill/uL (4.70-6.10)
[2023-12-25 06:19] LABS: Anion Gap 11 mmol/L (10-20); BUN (Urea Nitrogen) 12 mg/dL (8.9-20.6); Calc. Creatinine Clearance 144 mL/min (70-130); Calcium 9.2 mg/dL (7.8-10.44); Carbon Dioxide 29 mmol/L (22-29); Chloride 102 mmol/L (98-107); Estimated GFR 129; Glucose 98 mg/dL (70-105); Potassium 3.8 mmol/L (3.5-5.1); Sodium 138 mmol/L (136-145)
[2023-12-25] MEDS: hydrOXYzine Pamoate 25 mg Capsule PO PRN (15:16)
[2023-12-25] MEDS ORDERED: cloNIDine 0.1 MG TAB PO SCH (16:58)
[2023-12-25] MEDS: clonazePAM 0.5 MG TAB PO SCH ×2 (17:18→21:06)
[2023-12-26] MEDS ORDERED: Cyclobenzaprine 10 MG TAB PO PRN (09:41)
[2023-12-26] MEDS: Acetaminophen 325 MG TAB PO SCH (12:07)
[2023-12-26] MEDS: HYDROcodone/Acetaminophen 7.5/325 mg Tablet PO PRN (14:58)
[2023-12-26] MEDS: Ibuprofen 600 MG TAB PO SCH (14:59)
[2023-12-26] MEDS: Melatonin 3 MG TAB PO SCH (21:52)
[2023-12-28] MEDS: Lactulose 20 GM (30 mL) UDCUP PO SCH (09:37)
[2024-01-01 05:10] LABS: #Basophils 0.05 10x3/uL (0.0-0.2); %Basophils 0.2 % (0.0-1.0); %Eosinophils 0.7 % (0.0-10.0); %Lymphocytes 7.2 % (21.0-51.0); %Monocytes 8.3 % (0.0-10.0); %Neutrophils 82.5 % (42.0-75.0); Hematocrit 33.3 % (42.0-52.0); Hemoglobin 10.7 g/dL (14.0-18.0); Mean Corpuscular HGB CONC 32.1 g/dL (32.0-36.0); Mean Corpuscular Hemoglobin 30.1 pg (27.0-31.0); Mean Corpuscular Volume 93.5 fL (78.0-98.0); Mean Platelet Volume 10.7 fL (7.4-10.4); Platelet Count 242 10x3/uL (130-400); RBC Distribution Width 14.3 % (11.5-14.5); Red Blood Cell (RBC) Count 3.56 mill/uL (4.70-6.10)
[2024-01-01 05:26] LABS: Anion Gap 13 mmol/L (10-20); BUN (Urea Nitrogen) 10 mg/dL (8.9-20.6); Calc. Creatinine Clearance 165 mL/min (70-130); Calcium 9.4 mg/dL (7.8-10.44); Carbon Dioxide 27 mmol/L (22-29); Chloride 103 mmol/L (98-107); Estimated GFR 132; Glucose 87 mg/dL (70-105); Potassium 3.9 mmol/L (3.5-5.1); Sodium 139 mmol/L (136-145)
[2024-01-01] MEDS ORDERED: Piperacillin/Tazobactam 3.375 GM in Sodium Chloride 0.9% 100 ML IVPB SCH (08:00)
[2024-01-01 09:08] LABS: Bilirubin Negative (Negative); Blood, Urine 3+ (Negative); Clarity Turbid (Clear); Glucose, Urine (Dipstick) Normal (Negative); Ketone, Urine Negative (Negative); Leukocyte 500 Leu/uL (Negative); Nitrite Negative (Negative); Protein, Urine (Dipstick) Negative (Neg-Trace); RBC/HPF 0-3 HPF (0-3); Specific Gravity, Urine 1.005 (1.002-1.036); Squamous Epithelial None Seen HPF (0-3); Urobilinogen Normal mg/dL (Less than 2)
[2024-01-01 09:21] LABS: Bacteria/HPF 2+ HPF (None Seen); WBC/HPF 21-50 HPF (0-3)
[2024-01-01] MEDS ORDERED: Iopamidol-370 76% 500 ML MDV (1 ML CHARGE) ONE (10:30)
[2024-01-01] MEDS: Piperacillin/Tazobactam 3.375 GM in Sodium Chloride 0.9% 100 ML IVPB SCH ×2 (10:54→14:47)
[2024-01-02 06:03] LABS: #Basophils 0.06 10x3/uL (0.0-0.2); %Basophils 0.4 % (0.0-1.0); %Eosinophils 1.6 % (0.0-10.0); %Lymphocytes 14.4 % (21.0-51.0); %Monocytes 10.2 % (0.0-10.0); %Neutrophils 72.5 % (42.0-75.0); Hematocrit 30.9 % (42.0-52.0); Hemoglobin 10.3 g/dL (14.0-18.0); Mean Corpuscular HGB CONC 33.3 g/dL (32.0-36.0); Mean Corpuscular Hemoglobin 30.2 pg (27.0-31.0); Mean Corpuscular Volume 90.6 fL (78.0-98.0); Mean Platelet Volume 10.4 fL (7.4-10.4); Platelet Count 252 10x3/uL (130-400); RBC Distribution Width 14.3 % (11.5-14.5); Red Blood Cell (RBC) Count 3.41 mill/uL (4.70-6.10)
[2024-01-02 06:30] LABS: Anion Gap 14 mmol/L (10-20); BUN (Urea Nitrogen) 10 mg/dL (8.9-20.6); Calc. Creatinine Clearance 143 mL/min (70-130); Calcium 8.8 mg/dL (7.8-10.44); Carbon Dioxide 26 mmol/L (22-29); Chloride 105 mmol/L (98-107); Estimated GFR 126; Glucose 100 mg/dL (70-105); Potassium 3.5 mmol/L (3.5-5.1); Sodium 141 mmol/L (136-145)
[2024-01-02] MEDS: Potassium Chloride 20 MEQ TAB PO SCH (08:44)
[2024-01-02] MEDS ORDERED: Famotidine/PF 20 mg/2ml Vial ONE (09:58)
[2024-01-02] MEDS ORDERED: Iopamidol 15 ML ONE (12:09)
[2024-01-02] MEDS ORDERED: Piperacillin/Tazobactam 3.375 GM VIAL ONE (12:17)
[2024-01-02] MEDS ORDERED: Sodium Chloride 0.9% 100 ML ONE (12:17)
[2024-01-02] MEDS ORDERED: Iopamidol 30 ML ONE (12:19)
[2024-01-02] MEDS ORDERED: fentaNYL 50 mcg/mL 1 mL Vial ONE ×2 (12:22→12:50)
[2024-01-02] MEDS ORDERED: Lidocaine 2% PF 5 ML VIAL ONE (12:22)
[2024-01-02] MEDS ORDERED: PROPOFOL 20 ML ONE (12:22)
[2024-01-02] MEDS ORDERED: Dexamethasone 4 mg/ml Vial ONE (12:43)
[2024-01-02] MEDS ORDERED: Ondansetron PF 4 MG/2 ML Vial ONE (12:43)
[2024-01-02] MEDS ORDERED: Meperidine HCl/PF 25 MG (1 mL) VIAL ONE (13:41)
[2024-01-02] MEDS ORDERED: Ketorolac Tromethamine 30 MG/ML VIAL IVP PRN (13:45)
[2024-01-02] MEDS ORDERED: Promethazine HCl 25 MG/ML VIAL IM PRN (13:45)
[2024-01-02] MEDS ORDERED: Ondansetron HCl/PF 4 MG/2 ML Vial IVP PRN (13:45)
[2024-01-02] MEDS: Trospium 20 MG TAB PO SCH (20:47)
[2024-01-02] MEDS: QUEtiapine 100 MG TAB PO SCH (20:47)
[2024-01-03 06:31] LABS: #Basophils 0.04 10x3/uL (0.0-0.2); %Basophils 0.4 % (0.0-1.0); %Eosinophils 1.6 % (0.0-10.0); %Lymphocytes 22.4 % (21.0-51.0); %Monocytes 7.8 % (0.0-10.0); %Neutrophils 66.6 % (42.0-75.0); Hematocrit 30.3 % (42.0-52.0); Hemoglobin 9.9 g/dL (14.0-18.0); Mean Corpuscular HGB CONC 32.7 g/dL (32.0-36.0); Mean Corpuscular Hemoglobin 30.2 pg (27.0-31.0); Mean Corpuscular Volume 92.4 fL (78.0-98.0); Mean Platelet Volume 10.7 fL (7.4-10.4); Platelet Count 269 10x3/uL (130-400); RBC Distribution Width 14.2 % (11.5-14.5); Red Blood Cell (RBC) Count 3.28 mill/uL (4.70-6.10)
[2024-01-03 11:42] VITALS: BMI 21.7
[2024-01-03] MEDS: Enoxaparin 40 MG (0.4 mL) SYRINGE SC SCH (19:51)
[2024-01-05] MEDS: Meropenem 1 GM in Sodium Chloride 0.9% 100 ML IVPB SCH ×2 (09:06→16:46)
[2024-01-05] MEDS ORDERED: Meropenem 500 MG in Sodium Chloride 0.9% 100 ML IVPB SCH (14:00)
[2024-01-05] MEDS ORDERED: Meropenem 1 GM in Sodium Chloride 0.9% 100 ML IVPB SCH (17:00)
[2024-01-05] MEDS: QUEtiapine 100 MG TAB PO SCH (20:33)
[2024-01-10 08:43] VITALS: TEMP 98.5
[2024-01-10] MEDS: Sulfameth/Trimethoprim DS 800-160mg TAB PO SCH (09:15)
[2024-01-10 15:25] VITALS: BP 119/78
== END 2024-01-10 16:53 | DRG 3 ==
LOC: ERS 17:41 → EDBD 19:01 → CCU 19:01 → IMCU/EMU 12-19 08:47 → SURG B 12-20 19:18 → SURG A 12-29 18:43
PROVIDERS: ADMIT Specialist; ATTEND Specialist
PROC: 05H633Z Insertion of Infusion Device into Left Subclavian Vein, Percutaneous Approach (ICD-10-PCS; principal; 2023-12-04)
PROC: B5171ZA Fluoroscopy of Left Subclavian Vein using Low Osmolar Contrast, Guidance (ICD-10-PCS; 2023-12-04)
PROC: 3E0336Z Introduction of Nutritional Substance into Peripheral Vein, Percutaneous Approach (ICD-10-PCS; 2023-12-04)
PROC: 05H533Z Insertion of Infusion Device into Right Subclavian Vein, Percutaneous Approach (ICD-10-PCS; 2023-12-04)
PROC: B5161ZA Fluoroscopy of Right Subclavian Vein using Low Osmolar Contrast, Guidance (ICD-10-PCS; 2023-12-04)
PROC: 3E03329 Introduction of Other Anti-infective into Peripheral Vein, Percutaneous Approach (ICD-10-PCS; 2023-12-04)
PROC: 0W9930Z Drainage of Right Pleural Cavity with Drainage Device, Percutaneous Approach (ICD-10-PCS; 2023-12-04)
PROC: 5A1955Z Respiratory Ventilation, Greater than 96 Consecutive Hours (ICD-10-PCS; 2023-12-04)
PROC: 30233N1 Transfusion of Nonautologous Red Blood Cells into Peripheral Vein, Percutaneous Approach (ICD-10-PCS; 2023-12-04)
PROC: 30233K1 Transfusion of Nonautologous Frozen Plasma into Peripheral Vein, Percutaneous Approach (ICD-10-PCS; 2023-12-04)
PROC: 0QS606Z Reposition Right Upper Femur with Intramedullary Internal Fixation Device, Open Approach (ICD-10-PCS; 2023-12-05)
PROC: 0B968ZZ Drainage of Right Lower Lobe Bronchus, Via Natural or Artificial Opening Endoscopic (ICD-10-PCS; 2023-12-05)
PROC: 0B9D8ZZ Drainage of Right Middle Lung Lobe, Via Natural or Artificial Opening Endoscopic (ICD-10-PCS; 2023-12-05)
PROC: 0B938ZZ Drainage of Right Main Bronchus, Via Natural or Artificial Opening Endoscopic (ICD-10-PCS; 2023-12-05)
PROC: 4A133R1 Monitoring of Arterial Saturation, Peripheral, Percutaneous Approach (ICD-10-PCS; 2023-12-05)
PROC: 30233J1 Transfusion of Nonautologous Serum Albumin into Peripheral Vein, Percutaneous Approach (ICD-10-PCS; 2023-12-05)
PROC: 3E033XZ Introduction of Vasopressor into Peripheral Vein, Percutaneous Approach (ICD-10-PCS; 2023-12-05)
PROC: 0W9930Z Drainage of Right Pleural Cavity with Drainage Device, Percutaneous Approach (ICD-10-PCS; 2023-12-06)
PROC: 0B110F4 Bypass Trachea to Cutaneous with Tracheostomy Device, Open Approach (ICD-10-PCS; 2023-12-14)
PROC: 0D964ZZ Drainage of Stomach, Percutaneous Endoscopic Approach (ICD-10-PCS; 2023-12-14)
PROC: BT1B1ZZ Fluoroscopy of Bladder and Urethra using Low Osmolar Contrast (ICD-10-PCS; 2024-01-02)
PROC: 0T9B40Z Drainage of Bladder with Drainage Device, Percutaneous Endoscopic Approach (ICD-10-PCS; 2024-01-02)
DX: S06.5XAA Traumatic subdural hemorrhage with loss of consciousness status unknown, initial encounter (principal); S27.2XXA Traumatic hemopneumothorax, initial encounter; T79.4XXA Traumatic shock, initial encounter; S72.21XA Displaced subtrochanteric fracture of right femur, initial encounter for closed fracture; S36.115A Moderate laceration of liver, initial encounter; S72.141A Displaced intertrochanteric fracture of right femur, initial encounter for closed fracture; S22.21XA Fracture of manubrium, initial encounter for closed fracture; S22.41XA Multiple fractures of ribs, right side, initial encounter for closed fracture; S32.059A Unspecified fracture of fifth lumbar vertebra, initial encounter for closed fracture; T79.7XXA Traumatic subcutaneous emphysema, initial encounter; S32.129A Unspecified Zone II fracture of sacrum, initial encounter for closed fracture; S32.501A Unspecified fracture of right pubis, initial encounter for closed fracture; S37.30XA Unspecified injury of urethra, initial encounter; N39.0 Urinary tract infection, site not specified; S27.321A Contusion of lung, unilateral, initial encounter; R04.89 Hemorrhage from other sites in respiratory passages; S37.20XA Unspecified injury of bladder, initial encounter; S06.6XAA Traumatic subarachnoid hemorrhage with loss of consciousness status unknown, initial encounter; S42.111A Displaced fracture of body of scapula, right shoulder, initial encounter for closed fracture; W13.9XXA Fall from, out of or through building, not otherwise specified, initial encounter; T14.91XA Suicide attempt, initial encounter; B96.20 Unspecified Escherichia coli [E. coli] as the cause of diseases classified elsewhere; D72.829 Elevated white blood cell count, unspecified; I95.9 Hypotension, unspecified
CPT/HCPCS: 31624; 36415; 36430; 36556; 36600; 70450; 70498; 71045; 71260; 72125; 72141; 72170; 72190; 72193; 74018; 74177; 74178; 74230; 74420; 76870; 76942; 80048; 80053; 80306; 80307; 81001; 82805; 83605; 83735; 84100; 85025; 85610; 85730; 86850; 86900; 86901; 87040; 87070; 87071; 87077; 87086; 87186; 90714; 93005; 93010; 93970; 93976; 94002; 94003; 94640; 94760; 96365; 96366; 96374; 96375; A4333; B4087; C1713; C1889; G0390; J0171; J0665; J0696; J1100; J1630; J1650; J1885; J2001; J2060; J2175; J2185; J2250; J2270; J2272; J2405; J2543; J2704; J2765; J3010; J3475; J3480; J3490; J7030; J7050; J7620; P9016; P9047; P9048; P9059; Q0177; Q9967; S0028